=== PATIENT | female | born 1985 | race Caucasian/White ===

== ENCOUNTER 2016-12-08 03:47 | Emergency (ER) | payer SELFPAY ==
[~2016-12-08] VITALS: Ht 170.2 cm; Wt 59.0 kg
[2016-12-08 03:55] VITALS: BP 113/78
[2016-12-08] MEDS ORDERED: TRAM-48 PO (05:28)
[2016-12-08] MEDS ORDERED: IBUP-1007 PO (05:28)
--- NOTE | 2016-12-08 05:28 | PHYS DOC ---
Past Medical History Past Medical History: Other Additional Past Medical Histor: OTC DEFICIENCY Past Surgical History: Other Additional Past Surgical Histo: D &C Alcohol Use: Rarely Drug Use: None Adult General Chief Complaint Chief Complaint: SHORTNESS OF BREATH HPI HPI Patient is a 31 year old who presents here today complaining of shortness of breath. Patient reports that her son's a [employer]. Patient reports she fell down some stairs 3 days ago. Patient reports she has pain to the right side of her chest. Patient has any fevers shakes chills nausea vomiting diarrhea or cough. Patient has any hemoptysis. Patient has no history of hypertension diabetes liver longer kidney problems. Patient does smoke she does not drink or do drugs. Review of systems Constitutional: Denies fever or chills [] Eyes: Denies change in visual acuity, redness, or eye pain [] All other review systems are negative except as documented in the history of present illness portion. Physical exam Constitutional: Well developed, well nourished, no acute distress, non-toxic appearance. [] HENT: Normocephalic, atraumatic, bilateral external ears normal, oropharynx moist, no oral exudates, nose normal. [] Eyes: conjunctiva normal, no discharge. [] Neck: Normal range of motion, no tenderness, supple, no stridor. [] Cardiovascular:Heart rate regular rhythm, Lungs & Thorax: Bilateral breath sounds clear to auscultation [] Abdomen: Bowel sounds normal, soft, no tenderness, no masses, no pulsatile masses. [] Skin: Warm, dry, Back: No tenderness, Extremities: No tenderness, no cyanosis, Neurologic: Alert and oriented X 3, normal motor function, normal sensory function, no focal deficits noted. [] Psychologic: Affect normal, judgement normal, mood normal. [] Assessment and plan 31-year-old female who presents today complaining of shortness of breath secondary to pain to her chest from a fall 3 days ago. Patient's x-rays are negative. There is no pneumothorax or fracture noted. Patient's clinically hemodynamically stable for discharged home Current Medications Current Medications Current Medications Medications (Trade) Dose Ordered Sig/Priscila Start Time Stop Time Status Last Admin Dose Admin Hydromorphone HCl (Dilaudid) 0.5 mg 1X ONCE 12/08/16 06:00 12/08/16 06:00 DC 12/08/16 05:39 0.5 MG Ketorolac Tromethamine (Toradol) 60 mg 1X ONCE 12/08/16 06:00 12/08/16 06:00 DC 12/08/16 05:38 60 MG Ondansetron HCl (Zofran Odt) 4 mg 1X ONCE 12/08/16 06:00 12/08/16 06:00 DC 12/08/16 05:39 4 MG Allergies Allergies Allergies Coded Allergies Type Severity Reaction Last Updated Verified Sulfa (Sulfonamide Antibiotics) Allergy Intermediate 12/08/16 Yes Current Patient Data Vital Signs Vital Signs Date Time Temp Pulse Resp B/P (MAP) Pulse Ox O2 Delivery O2 Flow Rate FiO2 12/08/16 03:55 97.8 92 16 113/78 (90) 98 Room Air 97.8 EKG EKG [] Radiology/Procedures Radiology/Procedures [] Course & Med Decision Making Course & Med Decision Making Pertinent Labs and Imaging studies reviewed. (See chart for details) [] Dragon Disclaimer Dragon Disclaimer This electronic medical record was generated, in whole or in part, using a voice recognition dictation system. Departure Departure Impression: Primary Impression: Rib contusion Disposition: HOME, SELF-CARE Condition: IMPROVED Referrals: NO PCP (PCP) Patient Instructions: Rib Contusion Scripts Tramadol Hcl (ULTRAM) 50 Mg Tablet 1 TAB PO Q6HRS, #14 TAB Prov: SUMIT TESFAYE MD 12/08/16 Ibuprofen (IBUPROFEN) 600 Mg Tablet 600 MG PO PRN Q6HRS Y for PAIN, #20 TAB Prov: SUMIT TESFAYE MD 12/08/16 SUMIT TESFAYE MD Dec 08, 2016 05:28
[2016-12-08] MEDS ORDERED: HYDROmorphone 2 MG/ML VIAL IM ONE (06:00)
[2016-12-08] MEDS ORDERED: ONDANSETRON ODT 4 MG TAB.RAPDIS. PO ONE (06:00)
[2016-12-08] MEDS ORDERED: KETOROLAC 15 MG/ML VIAL. IM ONE (06:00)
--- NOTE | 2016-12-08 08:30 | RAD ---
EXAM: Chest 2 views. HISTORY: Chest pain. COMPARISON: None. FINDINGS: Frontal and lateral views of the chest are obtained. There are no confluent infiltrates. There is no pneumothorax or pleural effusion. The heart is not enlarged. IMPRESSION: 1. No confluent infiltrates.
== END 2016-12-08 05:50 | disposition home or self-care (01) ==
LOC: ER 03:47
DX: S20.211A Contusion of right front wall of thorax, initial encounter (principal); Z88.2 Allergy status to sulfonamides; W10.8XXA Fall (on) (from) other stairs and steps, initial encounter; Y93.89 Activity, other specified; Y99.8 Other external cause status; Y92.89 Other specified places as the place of occurrence of the external cause
CPT/HCPCS: 71020; 96372; 99284; J1170; J1885; Q0162